=== PATIENT | female | born 1940 | race Caucasian/White ===

== ENCOUNTER 2019-08-15 20:37 | Inpatient (IN) | payer OTHER ==
[~2019-08-15] VITALS: Ht 162.6 cm; Wt 65.9 kg
[2019-08-15 20:38] VITALS: BP 86/53
[2019-08-15 21:13] LABS: ABSOLUTE NEUTROPHILS 10.1 thou/uL (1.4-8.2); EOSINOPHILS 0.2 % (0.0-3.0)
[2019-08-15 21:14] LABS: BASOPHILS 0.4 % (0.0-2.0); MCH 26.4 pg (26.0-34.0); MCHC 31.8 g/dL (28.0-37.0); MCV 83.1 fL (80.0-100.0); MONOCYTES 4.5 % (1.0-8.0); PLATELET COUNT 299 thou/uL (150-400); POLYS 77.9 % (36.0-66.0); RBC 2.19 mil/uL (4.20-5.00); RDW 15.8 % (10.5-14.5)
[2019-08-15 21:16] LABS: ANION GAP 10 mmol/L (7-16); BUN 108 mg/dL (7-18); CALCIUM 9.1 mg/dL (8.5-10.1); CHLORIDE 105 mmol/L (98-107); CO2 21 mmol/L (21-32); CREATININE 1.2 mg/dL (0.6-1.0); GLUCOSE 196 mg/dL (74-106); HEMATOCRIT 18.2 % (37.0-47.0); HEMOGLOBIN 5.8 gm/dL (12.0-15.0); POTASSIUM 4.3 mmol/L (3.5-5.1); SODIUM 136 mmol/L (136-145)
[2019-08-15 21:27] LABS: ALBUMIN 2.7 g/dL (3.4-5.0); SGOT 22 U/L (15-37); SGPT 17 U/L (30-65); TOTAL BILIRUBIN 0.2 mg/dL (<0.1-1.0); TOTAL PROTEIN 5.6 g/dL (6.4-8.2); TROPONIN-I <0.06 ng/mL (<0.06)
[2019-08-15 21:34] LABS: ANISOCYTOSIS 1+; MICROCYTES 1+
[2019-08-15 21:49] LABS: APTT 21.5 Seconds (24.5-32.8); PROTIME 10.7 Seconds (9.3-11.4)
[2019-08-15 22:46] VITALS: BP 92/45
[2019-08-15 23:30] VITALS: BP 113/61; BP 88/53; BP 95/59; BP 98/73
[2019-08-16 02:34] LABS: % SATURATION 49 % (20-39); IRON 139 ug/dL (50-170); TIBC 282 ug/dL (250-450)
[2019-08-16 03:09] VITALS: BP 105/65; BP 106/65; BP 82/53
[2019-08-16 05:00] VITALS: BP 121/66
[2019-08-16 06:27] LABS: HEMATOCRIT 26.7 % (37.0-47.0)
[2019-08-16 06:29] LABS: HEMOGLOBIN 8.6 gm/dL (12.0-15.0)
[2019-08-16 08:05] VITALS: BP 115/63
--- NOTE | 2019-08-16 08:14 | NUR ---
RECEIVED REPORT FROM SHASHA VILLA RN.PATIENT ARRIVED TO ROOM 207 AROUND 2230 ACCOMPANIED BY HER .PATIENT WAS VERY PALE.PROTONIX GTT STARTED IMMEDIATELY.BLOOD TRANSFUSION DONE X 2 UNITS. NO TRANSFUSION REACTION NOTED.MONITOR SHOWS SINUS RHYTHM,SINUS TACHY,BP LOW,AFEBRILE.WILL MONITOR AND CONTINUE POC.
--- NOTE | 2019-08-16 11:08 | EKG ---
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
[2019-08-16 11:30] VITALS: BP 110/65
--- NOTE | 2019-08-16 14:09 | HC ---
[facility] [address] [address] CONSULTATION Name: SCOT BOWERS Irish Room #: 207-P [facility] IN M.R.#: [id number] Admission: 08/15/19 Attend Phys: Eddie Holliday MD Discharge: Date of : 38 Report #: [id number] THIS REPORT FOR: //name// CC: Eddie Edwards MD GASTROINTESTINAL CONSULTATION REASON FOR CONSULTATION: The patient is an 79-year-old woman who presented to [facility] with melanotic stools and hematemesis. HISTORY OF PRESENT ILLNESS: This 79-year-old woman reports in the past she did have heartburn problems many years ago. She would take yhmj-gky-jaltvzd antacids. However, she notes that many years ago, she lost weight and heartburn symptoms resolved. Since that time, she has not had any peptic symptoms. She was well until about 2 days ago when she went to the store. She felt weak, fatigued, dizzy and had a near syncopal episode, but did not lose consciousness. She tells me that the staff in the store would not allow her to drive home, but they drove her car home and make sure she got home safely. She went home and she notes that she had about 3 or 4 black tarry stools that day. However, she did not seek any medical attention. She said she just felt very weak, fatigued and worn out. The following day, which was yesterday, she continued to feel weak and fatigued. She had 2 falls at home because she was so weak. On the second fall, she states that she vomited bloody material. Again, she states she did not lose consciousness and she does not report any injuries from her falls. A 911 was called and she was brought to [facility] for further evaluation and treatment. She was seen and evaluated in the Emergency Room, she was found to have a hemoglobin of 5.8 with an MCV of 83 and white count of 13,000. Other labs included normal INR 1.0. Her electrolytes were unremarkable. Creatinine was slightly elevated at 1.2 and her BUN was markedly elevated at 108. Iron studies revealed normal iron, TIBC, percent saturation is slightly elevated at 49. Liver function studies were unremarkable. Albumin depressed at 2.7. B12, folate and TSH were all normal. She reports that overnight she received blood transfusions. This morning, her hemoglobin is up to 8.6. She feels much improved. She did not have any bloody stools, melanotic stools, nausea or vomiting overnight. She denies use of aspirin or nonsteroidal products. She does have some arthritis problems for which she uses Tylenol. There is no prior history of ulcer disease or GI bleeding. She is not anticoagulated. PAST MEDICAL HISTORY: She reports high blood pressure and depression, reflux [facility] [address] [place] [address] CONSULTATION Name: SCOT BOWERS Irish Room #: 207-P [facility] IN ..#: [id number] Admission: 08/15/19 Attend Phys: Eddie Holliday MD Discharge: Date of : 38 Report #: [id number] symptoms in the past, which resolved with weight loss. PAST SURGICAL HISTORY: She has had her tonsils out, breast biopsy for benign lesions, surgery for a finger fracture. She has also had bilateral cataract surgeries. ALLERGIES: She denies any drug allergies. HOME MEDICATIONS: She cannot give me a list of medications. In the computer database, there is a list, which includes baclofen 10 mg 3 times daily, lisinopril and hydrochlorothiazide 20/12.5 one daily, montelukast once daily, Celexa 20 mg daily, ibandronate 150 mg once monthly, terbinafine 250 mg for fungal nail infection and fluorouracil cream as directed. FAMILY HISTORY: Father of testicular cancer. No family history of colon cancer. SOCIAL HISTORY: , does not smoke or consume alcohol. Lives with her who is ill with diabetes and toe amputations. REVIEW OF SYSTEMS: GENERAL: Recently, there has been no change in weight, fever or chills. CENTRAL NERVOUS SYSTEM: Other than recently no other problems with seizures, strokes, loss of consciousness or near syncopal episodes. ENT: She has had bilateral cataract surgery. PULMONARY: She has had a chronic cough for which she has seen Dr. Edwards. No history of pneumonia or tuberculosis. CARDIOVASCULAR: No chest pain, chest tightness or palpitations. GASTROINTESTINAL: Heartburn problems in the past, not recently. Hematemesis this visit. She had a colonoscopy a couple of years ago, she had several polyps removed and was told she did not need any further colonoscopies. GENITOURINARY: She was admitted for some sort of urologic problems 3 or 4 years ago, which has since resolved. She does not know details. GYNECOLOGIC: She has had previous breast biopsies, which were benign. MUSCULOSKELETAL: Pains in her shoulders, back, hips and knees, so she takes Tylenol for those problems. SKIN: She has had either precancer or small cell skin cancers, which have been treated. ENDOCRINE: No known diabetes, thyroid problems, or weight loss. PSYCHIATRIC: She has been treated for depression for some time, she is not sure exactly why. HEMATOLOGIC: No previous problems with bleeding, skin lesions, no other cancers and no bleeding problems in the past. PHYSICAL EXAMINATION: GENERAL: Well-developed, well-nourished, pleasant woman who is awake, alert and [facility] [address] [place] [address] CONSULTATION Name: SCOT BOWERS Room #: 207-P ADM IN M.R.#: [id number] Admission: 08/15/19 Attend Phys: Eddie Holliday MD Discharge: Date of : 38 Report #: [id number] oriented, no acute distress. VITAL SIGNS: Blood pressure 121/66. HEENT: Anicteric. Pupils equal and round. Oropharynx clear. NECK: Supple. CHEST: Clear. HEART: Regular rate and rhythm, normal S1, normal S2. ABDOMEN: Normal bowel sounds, soft, nontender, without hepatosplenomegaly or masses. RECTAL: Not done at this time. EXTREMITIES: Without cyanosis, clubbing, edema. She has some ecchymotic areas on her lower extremities and some small sores. She has degenerative joint changes in her hands. NEUROLOGICAL: Oriented to person, place, and time. Moves all 4 extremities well. ASSESSMENT: 1. Upper gastrointestinal bleed. 2. High blood pressure. 3. History of reflux disease. 4. Anemia secondary to gastrointestinal blood loss, requiring transfusion. COMMENT: Suspect upper gastrointestinal bleeding lesion, presumably a peptic ulcer. PLAN: 1. Agree with Protonix. 2. Monitor hemoglobin and transfuse as needed. 3. Upper endoscopy. We will try to arrange to be done later today. <ELECTRONICALLY SIGNED> By: Abhinav Haynes MD 08/16/19 1409 0842 0945 Abhinav Haynes MD /nt
[2019-08-16 16:10] VITALS: BP 106/57
--- NOTE | 2019-08-16 16:55 | NUR ---
ASSUMED CARE OF PT AT SHIFT CHANGE. ASSESSMENTS CHARTED. MEDS GIVEN PER DEC. VSS. A&OX4. PT X1 ASSIST. PT WENT FOR EGD TODAY. MILD NAUSEA AND BLOATING REPORTED AFTER PROCEDURE. PT DECLINED NAUSEA MEDS. NOW PT IS ON CLEAR LIQUIDS. NO C/O PAIN. NO BM TODAY. WILL CONTINUE TO MONITOR AND FOLLOW POC.
[2019-08-16 20:01] VITALS: BP 111/62
[2019-08-17 00:32] LABS: HEMATOCRIT 21.2 % (37.0-47.0)
[2019-08-17 05:32] VITALS: BP 109/62
[2019-08-17 05:36] LABS: GLYCOHEMOGLOBIN (HGB A1C) 4.7 % (4.8-5.6)
[2019-08-17 08:00] VITALS: BP 90/52
--- NOTE | 2019-08-17 09:16 | NUR ---
PATIENT A/O X 4.DENIES PAIN AND NAUSEA.UP WITH ASSIST TO THE BATHROOM.SLEPT 3 HOURS.PT MISSES HER FAMILY AND HOPING TO GO HOME SOON.MONITOR SHOWS SR.POC CONTINUED.
--- NOTE | 2019-08-17 11:02 | P ---
[facility] [place] [address] PROCEDURE REPORT Name: SCOT BOWERS Room #: 207-P ADM IN M.R.#: [id number] Admission: 08/15/19 Attend Phys: Eddie Holliday MD Discharge: Date of : 38 Report #: [id number] THIS REPORT FOR: //name// CC: Eddie Edwards MD REFERRING PHYSICIAN: Syed Edwards MD BRIEF HISTORY: The patient is an elderly woman who presented to [facility] with 2 days of melanotic stool and hematemesis. She is not anticoagulated and she is not using nonsteroidals. PREOPERATIVE DIAGNOSIS: Upper gastrointestinal bleeding. POSTOPERATIVE DIAGNOSES: 1. Bleeding gastric ulcer with exposed vessel. 2. Moderately large hiatus hernia. 3. Patchy antral gastritis with few scattered erosions. MEDICATIONS: Deep sedation with propofol per anesthesia. SPECIMEN: Biopsies of gastritis. ESTIMATED BLOOD LOSS: 5 mL. PROCEDURE: EGD with hemostasis and biopsy. FINDINGS: Prior to propofol sedation, procedure of upper endoscopy discussed with the patient as well potential risks and its complications. She indicates she understands and desires to proceed. DESCRIPTION OF PROCEDURE: With the patient in left lateral decubitus position, the [employer] video endoscope was inserted in the cervical esophagus under direct vision without difficulty. Examination of this organ through its entire length revealed normal esophageal mucosa down the squamocolumnar junction. Squamocolumnar junction was inspected and noted to be unremarkable. There was no evidence of ulcers, erosions varices or bleeding lesions. The scope was advanced into a moderately large hiatus hernia. The mucosa and hernia was unremarkable. There was no blood in the hernia. The scope was then advanced into the distal stomach, was examined on end view as well as retroflexed views. On initial examination, we did not see any ulcers or blood or bleeding within the gastric lumen. Upon retroflexion, the hiatus hernia was seen. No other abnormalities were seen. In the distal stomach, few small erosions were seen and felt not to represent bleeding site. The pylorus, duodenal bulb and post-coronary sweep down to the ligament of Treitz and beyond into the very first segment of the ileum were all unremarkable. There was no evidence of [facility] [address] [place] [address] PROCEDURE REPORT Name: SCOT BOWERS Room #: 207-P [facility] IN [facility].#: [id number] Admission: 08/15/19 Attend Phys: Eddie Holliday MD Discharge: Date of : 38 Report #: [id number] blood, ulcers, or AVMs. The scope was then withdrawn back in the stomach and was examined carefully along its end view as well as retroflexed views and finally on the lesser curvature of the stomach just distal to the hiatus hernia was a 1 cm shallow ulcer. There was white exudate. In the center was an exposed vessel that was not bleeding. We then switched out for the therapeutic scope of the larger channel and injected the ulcer crater with 2 mL of epinephrine. We then used a 10-Vietnamese BICAP probe and cauterized the vessel. Initially on touching the vessel, it started to bleed, but not briskly or spurting. We then reengaged the vessel with the 10-Vietnamese BICAP probe and multiple applications were applied right on top of the vessel. Several passes were made with a BICAP probe and finally the vessel was completely eradicated and the ulcer crater was flat and there was no further bleeding. Biopsies were obtained of the antrum and body to evaluate for H. pylori. Scope was withdrawn. The patient tolerated the procedure well. DISPOSITION: The patient with GI bleeding. No ulcer with exposed ulcer with nonbleeding visible vessel was seen. The ulcer was treated. Visible vessel was cauterized and destroyed. We will continue her on PPI at this point in time. We will allow her to have ____ at this time. Continue to monitor her hemoglobin. <ELECTRONICALLY SIGNED> By: Abhinav Haynes MD 08/17/19 1102 1403 2136 Abhinav Haynes MD /nt
[2019-08-17 12:15] VITALS: BP 94/51
[2019-08-17 16:15] VITALS: BP 113/64
--- NOTE | 2019-08-17 16:41 | NUR ---
AAOX4. CALM. PLEASANT. SR PER TELE. HGB UP TO 7.1 FROM 7.0 WITH IV FLUIDS RUNNING. PROTONIX DRIP. DR. GRANADOS ALLOWS ORAL INTAKE; SOFT BLAND DIET ORDERED. SR PER TELE. FALL PRECAUTIONS IN PLACE. FREQUENT CHECKS, WILL CONTINUE TO MONITOR.
[2019-08-17 20:00] VITALS: BP 108/63
[2019-08-18 00:30] LABS: HEMATOCRIT 19.3 % (37.0-47.0); HEMOGLOBIN 6.4 gm/dL (12.0-15.0)
[2019-08-18 02:11] VITALS: BP 106/65; BP 119/68
--- NOTE | 2019-08-18 05:10 | NUR ---
ASSUMED PT CARE AROUND 1900. A&OX4. VERY PLEASANT AND COOPERATIVE. C/O MILD CHRONIC BACK AND LE PAIN. DID NOT WANT ANY MEDICATION FOR PAIN. PT AMBULATED AROUND THE UNIT WITH NURSING STAFF. PT IS WEAK, BUT TOLERATED THE ACTIVITY WELL. VSS. AFEBRILE. H&H LOW. 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 ORDER RECEIVED TO GIVE 1 UNIT RBCS. TRANSFUSION GIVEN AND PT TOLERATED WELL. PT SLEPT PART OF THE NIGHT. RESP EVEN AND UNLABORED. NO S/S BLEEDING NOTED. FALL PRECAUTIONS IN PLACE. PROGRESSING SLOWLY TOWARD POC GOALS. WILL CONTINUE TO MONITOR FURTHER.
[2019-08-18 05:17] VITALS: BP 119/68
[2019-08-18 07:45] VITALS: BP 120/70
[2019-08-18] MEDS ORDERED: PROTONIX40 M4 PO (11:28)
[2019-08-18] MEDS ORDERED: MONTELUKAST SOD10 MG PO (12:08)
[2019-08-18] MEDS ORDERED: LISINOPRIL-HCT1 EAC1 PO (12:08)
[2019-08-18] MEDS ORDERED: CELEXA 20 MG TA20 MG PO (12:09)
[2019-08-18 12:10] VITALS: BP 129/70
--- NOTE | 2019-08-18 14:15 | NUR ---
met with patient who is to [place] today. Discussed with patient home health care. Patient reports she will be at a different address for home health care. She will be at [address] [place] [address]. Patient reports dogs at home so will rec HH at different home. Patient reviewed HH list and wishes for [facility] care. Referall to [place].
[2019-08-18 14:21] VITALS: BP 129/70
--- NOTE | 2019-08-18 14:52 | NUR ---
FAXED REFERRAL TO [facility] SPOKE WITH DALTON IN ADM SHE RECEIVED REFERRAL AND CAN ACCEPT BUT THEY CANNOT START VISITS TIL SUNDAY.
--- NOTE | 2019-08-18 17:00 | NUR ---
FAXED REFERRAL TO [facility] SPOKE WITH JACLYN IN INTAKE RECEIVED CONFIRMATION WILL F/U IN AM.
--- NOTE | 2019-08-18 17:19 | NUR ---
ASSUMED CARE OF PT AT SHIFT CHANGE. ASSESSMENTS CHARTED. MEDS GIVEN PER MAR. VSS. A&OX4. NO C/O PAIN. PT UP AD IVONE. HBG 9.6 WITH NO SIGNS OF BLEEDING OR DIZZINESS. DISCHARGE ORDERS AND EDUCATION COMPLETE. TELE AND IV DC'D. PT LEFT WITH ALL BELONGINGS VIA VOLUNTEER WHEELCHAIR TO FRONT DOOR. DRIVING HER HOME.
--- NOTE | 2019-08-19 14:06 | PATH ---
[facility] [address] [place] [address] PATHOLOGY RPT PROCEDURE Name: ROBINSONAMARA Room #: 207-P DIS IN M.R.#: [id number] Admission: 08/15/19 Date of : 38 Discharge: 08/18/19 Report #: [id number] Path Case #: [id number] [facility] Accession Number: [id number] . 01 Material submitted: . stomach - BX OF GASTRITIS . 01 Clinical history: . Pre-op diagnosis: Upper GI bleed Post-op diagnosis: Gastric ulcer, hiatal hernia R/O H. pylori . 02 Diagnosis: Gastric mucosa, gastritis R/O H. pylori, endoscopic biopsy: - Mild reactive gastropathy. - Negative for intestinal metaplasia or atrophy. - Negative for Helicobacter pylori (properly controlled immunohistochemical stain performed. (IUV:kadie; 08/19/2019) QMS 08/19/2019 1055 Local . 02 Electronically signed: . Oma Fontanez MD, Pathologist NPI- [id number] . 01 Gross description: . The specimen is received in formalin, labeled "Amara Bowers, biopsy of gastritis". Received are four segments of pale timmons soft tissue ranging in size from 0.1 to 0.6 cm in maximum dimensions. The specimen is submitted entirely in cassette A1. (CAA; 08/18/2019) QAC/QA 08/19/2019 1054 Local . 02 Pathologist provided ICD-10: K31.9 . 02 CPT . 865635, L22670 Specimen Comment: A courtesy copy of this report has been sent to [phone] Specimen Comment: [phone], Specimen Comment: Report sent to , , and Specimen Comment: A duplicate report has been generated due to demographic updates. Performed at: [address] [facility] [address] [id number] [place] [address] PATHOLOGY RPT PROCEDURE Name: AMARA BOWERS Room #: 207-P DIS IN M.R.#: [id number] Admission: 08/15/19 Date of : 38 Discharge: 08/18/19 Report #: [id number] Path Case #: [id number] MD Frank King MD Phone: [phone] Performed at: [address] [id number] MD Oma Fontanez MD Phone: [phone]
== END 2019-08-18 15:19 | disposition home health service (06) | DRG 377 ==
LOC: ER 20:37 → 2N 21:56 → EROBS 21:56 → 2N 22:16 → ENTRNSPT 08-18 15:09 → EDTRNSPTSTS 08-18 15:11 → 2N 08-18 15:19
PROVIDERS: Nurse Practitioner Acute Care; Physician Assistant; ADMIT Hospitalist
DX: K25.4 Chronic or unspecified gastric ulcer with hemorrhage (principal); E43 Unspecified severe protein-calorie malnutrition; D62 Acute posthemorrhagic anemia; K29.61 Other gastritis with bleeding; F32.9 Major depressive disorder, single episode, unspecified; K21.9 Gastro-esophageal reflux disease without esophagitis; G89.29 Other chronic pain; K44.9 Diaphragmatic hernia without obstruction or gangrene; M54.9 Dorsalgia, unspecified; I10 Essential (primary) hypertension; R73.9 Hyperglycemia, unspecified; M54.10 Radiculopathy, site unspecified; M54.5 Low back pain; J30.2 Other seasonal allergic rhinitis; Z98.42 Cataract extraction status, left eye; Z98.41 Cataract extraction status, right eye; Z80.8 Family history of malignant neoplasm of other organs or systems; Z79.899 Other long term (current) drug therapy
CPT/HCPCS: 10081; 62110; 62900